=== PATIENT | male | born 1950 | race African-American/Black ===

== ENCOUNTER 2017-11-20 09:34 | Emergency (ER) | payer MEDICARE, MEDICAID ==
[~2017-11-20] VITALS: Ht 182.9 cm; Wt 75.0 kg
[2017-11-20] MEDS ORDERED: IBUPROFEN 600MG TABLET PO ONE (17:30)
[2017-11-20] MEDS ORDERED: HYDROCODONE/ACETAMINOPHEN 5/325MG TABLET PO ONE (19:30)
[2017-11-20 23:15] VITALS: BP 139/75
== END 2017-11-20 22:35 | disposition home or self-care (01) ==
LOC: ER 09:58
DX: M54.42 Lumbago with sciatica, left side (principal); M79.672 Pain in left foot; M25.561 Pain in right knee; W19.XXXA Unspecified fall, initial encounter; Y93.89 Activity, other specified; Y92.89 Other specified places as the place of occurrence of the external cause; Y99.8 Other external cause status
CPT/HCPCS: 72170; 73564; 99284; L1830

== ENCOUNTER 2018-10-15 19:28 | Inpatient (IN) | payer BC, MEDICAID, OTHER ==
[~2018-10-15] VITALS: Ht 162.6 cm; Wt 75.3 kg
[2018-10-15] MEDS ORDERED: ONDANSETRON HCL 4MG/2ML INJ IV STA ×2 (20:19→23:51)
[2018-10-15] MEDS ORDERED: FENTANYL CITRATE/PF 50MCG/ML 2ML VIAL IV ONE (20:30)
[2018-10-15 21:31] LABS: MEAN CORPUSCULAR HEMOGLOBIN 28.4 pg (28.0-32.0); MEAN CORPUSCULAR VOLUME 85.6 fL (80.0-94.0); MEAN PLATELET VOLUME 7.4 fl (7.4-10.4); PLATELET 122 x1000/uL (130-400); RED BLOOD CELL COUNT 2.17 mill/uL (4.7-6.1); RED CELL DISTRIBUTION WIDTH 17.9 % (11.6-14.6)
[2018-10-15 21:35] LABS: HEMATOCRIT. 18.6 % (42.0-52.0); HEMOGLOBIN. 6.2 g/dL (14.0-18.0)
[2018-10-15 21:36] LABS: CHLORIDE 112 mEq/L (98-107)
[2018-10-15 21:39] LABS: INR 1.2
[2018-10-15 21:59] LABS: NUCLEATED RED BLOOD CELLS 4 /100 WBC; PLATELET ESTIMATE DECREASED
[2018-10-15] MEDS ORDERED: MORPHINE SULFATE 4 MG/ML CPJ (NOT FOR IM USE) IV STA (23:51)
[2018-10-16] VITALS (10 sets, daily range): BP systolic 122–137; BP diastolic 65–80
[2018-10-16 01:01] LABS: CLARITY URINE CLEAR (CLEAR); COLOR URINE YELLOW (YELLOW); KETONES URINE NEGATIVE (NEGATIVE); LEUKOCYTE ESTERASE URINE NEGATIVE (NEGATIVE); NITRITE URINE NEGATIVE (NEGATIVE); OCCULT BLOOD URINE 1+ (NEGATIVE); PH URINE 5.5 (4.5-8.0); PROTEIN URINE 2+ (NEGATIVE); SPECIFIC GRAVITY URINE 1.019 (1.005-1.030)
[2018-10-16] MEDS ORDERED: ACETAMINOPHEN 325MG TABLET PO PRN (06:45)
[2018-10-16] MEDS ORDERED: MAGNESIUM/ALUMINUM HYDROXIDE/SIMETHICONE 30ML UDC PO PRN (06:45)
[2018-10-16] MEDS ORDERED: ONDANSETRON HCL 4MG/2ML INJ IV PRN (06:45)
[2018-10-16] MEDS ORDERED: NA PHOS,M-B/NA PHOS,DI-BA ENEMA 118ML PR PRN (06:45)
[2018-10-16] MEDS ORDERED: CLONIDINE 0.1MG TABLET PO PRN (06:45)
[2018-10-16] MEDS: SODIUM CHLORIDE 0.9% 1,000 ML IV SCH (11:20)
[2018-10-16 16:35] LABS: HEMATOCRIT 21.1 % (42.0-52.0); MEAN CORPUSCULAR HEMOGLOBIN 28.8 pg (28.0-32.0); PLATELET 103 x1000/uL (130-400); RED BLOOD CELL COUNT 2.43 mill/uL (4.7-6.1); RED CELL DISTRIBUTION WIDTH 17.3 % (11.6-14.6)
[2018-10-16 16:48] LABS: TOTAL IRON BINDING CAPACITY 163 ug/dL (250-450)
[2018-10-17] VITALS (12 sets, daily range): BP systolic 127–156; BP diastolic 71–107
[2018-10-17] MEDS: SODIUM CHLORIDE 0.9% 1,000 ML IV SCH ×2 (01:37→08:02)
[2018-10-17 07:52] LABS: BASOPHILS % 0.9 % (0.0-2.0); EOSINOPHILS % 0.7 % (0.0-5.0); HEMATOCRIT. 21.8 % (42.0-52.0); HEMOGLOBIN. 7.1 g/dL (14.0-18.0); LYMPHOCYTES % 21.2 % (20.0-50.0); MEAN CORPUSCULAR HEMOGLOBIN 28.7 pg (28.0-32.0); MEAN CORPUSCULAR VOLUME 87.4 fL (80.0-94.0); MEAN PLATELET VOLUME 8.1 fl (7.4-10.4); MONOCYTES % 8.7 % (2.0-8.0); NEUTROPHILS % 68.5 % (40.0-76.0); PLATELET 86 x1000/uL (130-400); RED BLOOD CELL COUNT 2.49 mill/uL (4.7-6.1); RED CELL DISTRIBUTION WIDTH 16.8 % (11.6-14.6)
[2018-10-17 15:17] LABS: BG BASE EXCESS -7.7 mmol/L (-2.0-2.0); BG CARBOXYHEMOGLOBIN 0.3 % (0.5-1.5); BG DEOXYHEMOGLOBIN 2.9 % (0.0-5.0); BG FRACTION INSPIRED OXYGEN 21; BG HCO3 ACT 15.2 mmol/L (22.0-26.0); BG METHEMOGLOBIN 0.7 % (0.0-1.5); BG OXYGEN SATURATION 97.1 % (92.0-98.5); BG OXYHEMOGLOBIN 96.1 % (94.0-97.0); BG PCO2 22.3 mmHg (35.0-45.0); BG PO2 95.2 mmHg (75.0-100.0); BG SAMPLE SITE RIGHT RADIAL; BG TOTAL HEMOGLOBIN 8.3 g/dL (12.0-18.0); BG VENT MODE ROOM AIR
[2018-10-17] MEDS: BICALUTAMIDE 50 MG TABLET PO SCH (16:00)
[2018-10-17] MEDS ORDERED: BICALUTAMIDE 50 MG TABLET PO SCH (20:55)
[2018-10-18] VITALS (7 sets, daily range): BP systolic 130–159; BP diastolic 76–110
[2018-10-18] MEDS: SODIUM CHLORIDE 0.9% 1,000 ML IV SCH (04:23)
[2018-10-18 06:48] LABS: BASOPHILS % 0.7 % (0.0-2.0); EOSINOPHILS % 0.7 % (0.0-5.0); HEMATOCRIT. 23.6 % (42.0-52.0); HEMOGLOBIN. 7.8 g/dL (14.0-18.0); LYMPHOCYTES % 17.9 % (20.0-50.0); MEAN CORPUSCULAR HEMOGLOBIN 28.7 pg (28.0-32.0); MEAN CORPUSCULAR VOLUME 86.4 fL (80.0-94.0); MONOCYTES % 8.7 % (2.0-8.0); PLATELET 87 x1000/uL (130-400); RED BLOOD CELL COUNT 2.73 mill/uL (4.7-6.1); RED CELL DISTRIBUTION WIDTH 16.9 % (11.6-14.6)
[2018-10-18 07:37] LABS: PHOSPHORUS 2.4 mg/dL (2.5-4.9)
[2018-10-18] MEDS: BICALUTAMIDE 50 MG TABLET PO SCH (09:00)
[2018-10-18] MEDS ORDERED: DOCUSATE SODIUM 100MG CAPSULE PO PRN (19:00)
[2018-10-18 21:44] LABS: HEMATOCRIT 25.2 % (42.0-52.0); HEMOGLOBIN 8.4 g/dL (14.0-18.0)
[2018-10-18] MEDS: HYDROCODONE/APAP 7.5/325MG 1 TAB TABLET PO PRN (23:37)
[2018-10-19] VITALS: BP 157/77
[2018-10-19] MEDS: SODIUM CHLORIDE 0.9% 1,000 ML IV SCH (01:28)
[2018-10-19] MEDS: DIPHENHYDRAMINE 50MG/ML VIAL IV PRN (02:59)
[2018-10-19 04:00] VITALS: BP 138/75
[2018-10-19 07:38] LABS: BASOPHILS % 0.6 % (0.0-2.0); EOSINOPHILS % 0.9 % (0.0-5.0); HEMOGLOBIN. 8.4 g/dL (14.0-18.0); LYMPHOCYTES % 22.3 % (20.0-50.0); MEAN CORPUSCULAR HEMOGLOBIN 28.9 pg (28.0-32.0); MEAN PLATELET VOLUME 7.6 fl (7.4-10.4); MONOCYTES % 10.3 % (2.0-8.0); NEUTROPHILS % 65.9 % (40.0-76.0); PLATELET 99 x1000/uL (130-400)
[2018-10-19 08:00] VITALS: BP 138/68
[2018-10-19] MEDS: BICALUTAMIDE 50 MG TABLET PO SCH (08:43)
[2018-10-19] MEDS: AMLODIPINE 5MG TABLET PO SCH (08:54)
[2018-10-19 08:58] LABS: PHOSPHORUS 2.7 mg/dL (2.5-4.9)
[2018-10-19] MEDS ORDERED: FUROSEMIDE 20MG/2ML VIAL IVP SCH (09:15)
[2018-10-19 11:30] VITALS: BP 129/73
[2018-10-19] MEDS: METRONIDAZOLE 500MG TABLET PO SCH ×2 (15:26→21:06)
[2018-10-19 15:55] VITALS: BP 140/80
[2018-10-19] MEDS ORDERED: VANCOMYCIN HCL 1 GM/VIAL PO SCH (18:00)
[2018-10-19] MEDS ORDERED: DEXTROSE 50% WATER 50ML SYRINGE IV PRN (19:30)
[2018-10-19] MEDS: VANCOMYCIN HCL 1000 MG/20 ML ORAL PO SCH (19:30)
[2018-10-19 20:00] VITALS: BP 131/81
[2018-10-19] MEDS: BLOOD SUGAR DIAGNOSTIC STRIP TEST SCH (21:00)
[2018-10-20] VITALS (19 sets, daily range): BP systolic 112–151; BP diastolic 62–96
[2018-10-20] MEDS: METRONIDAZOLE 500MG TABLET PO SCH ×3 (06:08→22:00)
[2018-10-20] MEDS: VANCOMYCIN HCL 1000 MG/20 ML ORAL PO SCH ×5 (06:09→23:08)
[2018-10-20 06:50] LABS: BASOPHILS % 1.1 % (0.0-2.0); EOSINOPHILS % 0.8 % (0.0-5.0); HEMATOCRIT. 23.6 % (42.0-52.0); LYMPHOCYTES % 19.1 % (20.0-50.0); MEAN CORPUSCULAR HEMOGLOBIN 28.8 pg (28.0-32.0); MEAN CORPUSCULAR VOLUME 84.8 fL (80.0-94.0); MEAN PLATELET VOLUME 7.3 fl (7.4-10.4); MONOCYTES % 12.7 % (2.0-8.0); NEUTROPHILS % 66.3 % (40.0-76.0); PLATELET 91 x1000/uL (130-400); RED BLOOD CELL COUNT 2.78 mill/uL (4.7-6.1); RED CELL DISTRIBUTION WIDTH 16.8 % (11.6-14.6)
[2018-10-20] MEDS: BLOOD SUGAR DIAGNOSTIC STRIP TEST SCH ×4 (07:30→20:21)
[2018-10-20] MEDS: BICALUTAMIDE 50 MG TABLET PO SCH (09:18)
[2018-10-20] MEDS: AMLODIPINE 5MG TABLET PO SCH (09:18)
[2018-10-20] MEDS ORDERED: IOHEXOL-300 50 ML BOTTLE IV ONE (12:53)
[2018-10-20] MEDS ORDERED: LIDOCAINE HCL 1% 20ML VIAL (Pyxis) INJ ONE (12:54)
[2018-10-20] MEDS ORDERED: FENTANYL CITRATE/PF 50MCG/ML 2ML VIAL ONE (13:33)
[2018-10-20] MEDS ORDERED: FENTANYL CITRATE/PF 50MCG/ML 2ML VIAL IV ONE (13:45)
[2018-10-21] VITALS (7 sets, daily range): BP systolic 111–147; BP diastolic 70–88
[2018-10-21] MEDS: HYDROCODONE/APAP 7.5/325MG 1 TAB TABLET PO PRN (00:29)
[2018-10-21] MEDS: DIPHENHYDRAMINE 50MG/ML VIAL IV PRN (00:56)
[2018-10-21] MEDS: METRONIDAZOLE 500MG TABLET PO SCH ×3 (05:27→23:53)
[2018-10-21] MEDS: VANCOMYCIN HCL 1000 MG/20 ML ORAL PO SCH ×4 (05:27→23:54)
[2018-10-21 06:49] LABS: BASOPHILS % 1.1 % (0.0-2.0); EOSINOPHILS % 1.3 % (0.0-5.0); HEMATOCRIT. 24.4 % (42.0-52.0); HEMOGLOBIN. 8.1 g/dL (14.0-18.0); LYMPHOCYTES % 23.1 % (20.0-50.0); MEAN CORPUSCULAR HEMOGLOBIN 28.6 pg (28.0-32.0); MEAN CORPUSCULAR VOLUME 86.4 fL (80.0-94.0); MEAN PLATELET VOLUME 7.5 fl (7.4-10.4); MONOCYTES % 12.7 % (2.0-8.0); NEUTROPHILS % 61.8 % (40.0-76.0); PLATELET 104 x1000/uL (130-400); RED BLOOD CELL COUNT 2.82 mill/uL (4.7-6.1); RED CELL DISTRIBUTION WIDTH 17.1 % (11.6-14.6)
[2018-10-21] MEDS: BLOOD SUGAR DIAGNOSTIC STRIP TEST SCH ×4 (08:29→21:42)
[2018-10-21] MEDS: BICALUTAMIDE 50 MG TABLET PO SCH (08:49)
[2018-10-21] MEDS: AMLODIPINE 5MG TABLET PO SCH (08:52)
[2018-10-21 11:19] LABS: PHOSPHORUS 2.9 mg/dL (2.5-4.9)
[2018-10-22] VITALS (11 sets, daily range): BP systolic 114–130; BP diastolic 65–97
[2018-10-22] MEDS: METRONIDAZOLE 500MG TABLET PO SCH ×3 (06:06→21:25)
[2018-10-22] MEDS: VANCOMYCIN HCL 1000 MG/20 ML ORAL PO SCH ×3 (06:07→19:38)
[2018-10-22] MEDS: BLOOD SUGAR DIAGNOSTIC STRIP TEST SCH ×4 (06:09→21:26)
[2018-10-22 07:51] LABS: MEAN CORPUSCULAR HEMOGLOBIN 28.8 pg (28.0-32.0); MEAN CORPUSCULAR VOLUME 86.8 fL (80.0-94.0); MEAN PLATELET VOLUME 7.7 fl (7.4-10.4); PLATELET 97 x1000/uL (130-400); RED BLOOD CELL COUNT 2.29 mill/uL (4.7-6.1); RED CELL DISTRIBUTION WIDTH 16.7 % (11.6-14.6)
[2018-10-22 08:07] LABS: PHOSPHORUS 2.5 mg/dL (2.5-4.9)
[2018-10-22 08:13] LABS: HEMOGLOBIN. 6.6 g/dL (14.0-18.0)
[2018-10-22 08:14] LABS: HEMATOCRIT. 19.9 % (42.0-52.0)
[2018-10-22] MEDS: AMLODIPINE 5MG TABLET PO SCH (08:59)
[2018-10-22] MEDS: BICALUTAMIDE 50 MG TABLET PO SCH (08:59)
[2018-10-22 11:50] LABS: PLATELET ESTIMATE DECREASED
[2018-10-22 21:15] LABS: BASOPHILS % 1.7 % (0.0-2.0); EOSINOPHILS % 1.1 % (0.0-5.0); HEMATOCRIT. 23.5 % (42.0-52.0); HEMOGLOBIN. 7.8 g/dL (14.0-18.0); LYMPHOCYTES % 23.8 % (20.0-50.0); MEAN CORPUSCULAR HEMOGLOBIN 28.9 pg (28.0-32.0); MEAN CORPUSCULAR VOLUME 87.1 fL (80.0-94.0); MEAN PLATELET VOLUME 7.4 fl (7.4-10.4); MONOCYTES % 13.9 % (2.0-8.0); NEUTROPHILS % 59.5 % (40.0-76.0); PLATELET 116 x1000/uL (130-400); RED BLOOD CELL COUNT 2.69 mill/uL (4.7-6.1); RED CELL DISTRIBUTION WIDTH 17.1 % (11.6-14.6)
[2018-10-22 21:19] LABS: INR 1.4; PROTHROMBIN TIME 13.6 sec (9.1-11.1)
[2018-10-23] VITALS: BP 129/65
[2018-10-23] MEDS: VANCOMYCIN HCL 1000 MG/20 ML ORAL PO SCH ×5 (01:03→23:20)
[2018-10-23 04:00] VITALS: BP 126/60
[2018-10-23] MEDS: METRONIDAZOLE 500MG TABLET PO SCH ×3 (05:22→21:17)
[2018-10-23] MEDS: BLOOD SUGAR DIAGNOSTIC STRIP TEST SCH ×4 (05:45→20:41)
[2018-10-23 07:13] LABS: HEMATOCRIT. 24.4 % (42.0-52.0); MEAN CORPUSCULAR HEMOGLOBIN 28.8 pg (28.0-32.0); MEAN CORPUSCULAR VOLUME 88.2 fL (80.0-94.0); MEAN PLATELET VOLUME 7.3 fl (7.4-10.4); PLATELET 113 x1000/uL (130-400); RED BLOOD CELL COUNT 2.77 mill/uL (4.7-6.1)
[2018-10-23 07:51] LABS: PHOSPHORUS 2.2 mg/dL (2.5-4.9)
[2018-10-23 08:00] VITALS: BP 128/73
[2018-10-23] MEDS: AMLODIPINE 5MG TABLET PO SCH (08:40)
[2018-10-23] MEDS: BICALUTAMIDE 50 MG TABLET PO SCH (08:40)
[2018-10-23 11:22] LABS: NUCLEATED RED BLOOD CELLS 2 /100 WBC
[2018-10-23 11:23] LABS: PLATELET ESTIMATE NORMAL
[2018-10-23 12:00] VITALS: BP 123/68
[2018-10-23] MEDS ORDERED: SODIUM PHOS,M-BASIC-D-BASIC 15 MM in DEXT 5% WATER 245 ML IV SCH (14:00)
[2018-10-23 16:00] VITALS: BP 123/66
[2018-10-23 20:00] VITALS: BP 130/68
[2018-10-24] VITALS: BP_SYST 119; BP_SYST 126; BP_DIAS 56; BP_DIAS 73
[2018-10-24 04:00] VITALS: BP 126/70
[2018-10-24] MEDS: VANCOMYCIN HCL 1000 MG/20 ML ORAL PO SCH ×4 (05:34→23:05)
[2018-10-24] MEDS: METRONIDAZOLE 500MG TABLET PO SCH ×3 (05:34→22:02)
[2018-10-24 06:54] LABS: HEMATOCRIT. 23.3 % (42.0-52.0); HEMOGLOBIN. 7.7 g/dL (14.0-18.0); MEAN CORPUSCULAR HEMOGLOBIN 29.1 pg (28.0-32.0); MEAN PLATELET VOLUME 7.2 fl (7.4-10.4); PLATELET 137 x1000/uL (130-400); RED BLOOD CELL COUNT 2.65 mill/uL (4.7-6.1); RED CELL DISTRIBUTION WIDTH 17.2 % (11.6-14.6)
[2018-10-24 07:18] LABS: CHLORIDE 112 mEq/L (98-107)
[2018-10-24 07:28] LABS: PHOSPHORUS 2.8 mg/dL (2.5-4.9)
[2018-10-24 08:00] VITALS: BP 142/86
[2018-10-24] MEDS: BICALUTAMIDE 50 MG TABLET PO SCH (09:36)
[2018-10-24] MEDS: AMLODIPINE 5MG TABLET PO SCH (09:37)
[2018-10-24 12:00] VITALS: BP 121/67
[2018-10-24 16:00] VITALS: BP 126/71
[2018-10-24 17:33] LABS: PLATELET ESTIMATE NORMAL
[2018-10-24 20:00] VITALS: BP_SYST 116; BP_SYST 130; BP_DIAS 72; BP_DIAS 76
[2018-10-25] VITALS: BP 128/74
[2018-10-25 04:00] VITALS: BP 130/74
[2018-10-25] MEDS: METRONIDAZOLE 500MG TABLET PO SCH ×2 (05:18→13:55)
[2018-10-25] MEDS: VANCOMYCIN HCL 1000 MG/20 ML ORAL PO SCH ×2 (05:19→13:55)
[2018-10-25 05:39] LABS: HEMATOCRIT 23.6 % (42.0-52.0); HEMOGLOBIN 7.9 g/dL (14.0-18.0); MEAN CORPUSCULAR HEMOGLOBIN 29.3 pg (28.0-32.0); MEAN CORPUSCULAR VOLUME 87.2 fL (80.0-94.0); PLATELET 152 x1000/uL (130-400); RED CELL DISTRIBUTION WIDTH 17.1 % (11.6-14.6)
[2018-10-25 05:50] LABS: CHLORIDE 115 mEq/L (98-107)
[2018-10-25 08:00] VITALS: BP 128/69
[2018-10-25] MEDS: BICALUTAMIDE 50 MG TABLET PO SCH (09:02)
[2018-10-25] MEDS: AMLODIPINE 5MG TABLET PO SCH (09:03)
[2018-10-25 12:00] VITALS: BP 130/71
[2018-10-25 16:00] VITALS: BP 115/65
[2018-10-25 20:00] VITALS: BP 116/69
[2018-10-26] VITALS: BP 117/66
[2018-10-26 04:00] VITALS: BP 122/65
[2018-10-26 07:32] LABS: HEMATOCRIT. 24.2 % (42.0-52.0); HEMOGLOBIN. 8.1 g/dL (14.0-18.0); MEAN CORPUSCULAR HEMOGLOBIN 29.2 pg (28.0-32.0); MEAN CORPUSCULAR VOLUME 87.8 fL (80.0-94.0); MEAN PLATELET VOLUME 6.9 fl (7.4-10.4); PLATELET 165 x1000/uL (130-400); RED BLOOD CELL COUNT 2.76 mill/uL (4.7-6.1); RED CELL DISTRIBUTION WIDTH 16.8 % (11.6-14.6)
[2018-10-26 08:00] VITALS: BP 122/66
[2018-10-26 08:15] LABS: CHLORIDE 114 mEq/L (98-107)
[2018-10-26 08:23] LABS: PHOSPHORUS 2.4 mg/dL (2.5-4.9)
[2018-10-26] MEDS: BICALUTAMIDE 50 MG TABLET PO SCH (10:01)
[2018-10-26] MEDS ORDERED: POTASSIUM-SODIUM PHOSPHATE POWDER PACKET PO NR (10:45)
[2018-10-26 12:00] VITALS: BP 123/66
[2018-10-26 13:00] LABS: PLATELET ESTIMATE NORMAL
[2018-10-26 16:00] VITALS: BP 119/66
[2018-10-26 16:42] VITALS: BP 115/56
== END 2018-10-26 19:25 | DRG 542 ==
LOC: ER 19:28 → 5EST 22:55 → EDBEDREQ 10-16 02:03 → ENRESERV 10-16 08:12 → 5WST 10-21 18:08
PROVIDERS: ADMIT Internal Medicine; ATTEND Internal Medicine
PROC: 30233N1 Transfusion of Nonautologous Red Blood Cells into Peripheral Vein, Percutaneous Approach (ICD-10-PCS; principal; 2018-10-16)
PROC: 0T903ZZ Drainage of Right Kidney, Percutaneous Approach (ICD-10-PCS; 2018-10-20)
DX: C79.51 Secondary malignant neoplasm of bone (principal); E43 Unspecified severe protein-calorie malnutrition; I50.43 Acute on chronic combined systolic (congestive) and diastolic (congestive) heart failure; M84.454A Pathological fracture, pelvis, initial encounter for fracture; M84.48XA Pathological fracture, other site, initial encounter for fracture; N13.30 Unspecified hydronephrosis; N17.9 Acute kidney failure, unspecified; E87.2 Acidosis; A04.72 Enterocolitis due to Clostridium difficile, not specified as recurrent; C76.51 Malignant neoplasm of right lower limb; D64.9 Anemia, unspecified; C61 Malignant neoplasm of prostate; N32.0 Bladder-neck obstruction; D63.1 Anemia in chronic kidney disease; D69.6 Thrombocytopenia, unspecified; E16.2 Hypoglycemia, unspecified; E87.5 Hyperkalemia; F03.90 Unspecified dementia, unspecified severity, without behavioral disturbance, psychotic disturbance, mood disturbance, and anxiety; G89.3 Neoplasm related pain (acute) (chronic); K59.00 Constipation, unspecified; M48.02 Spinal stenosis, cervical region; M48.04 Spinal stenosis, thoracic region; M48.061 Spinal stenosis, lumbar region without neurogenic claudication; R62.7 Adult failure to thrive; N18.9 Chronic kidney disease, unspecified; Z51.5 Encounter for palliative care; Z66 Do not resuscitate; M85.80 Other specified disorders of bone density and structure, unspecified site; M19.90 Unspecified osteoarthritis, unspecified site; R26.9 Unspecified abnormalities of gait and mobility; Z68.28 Body mass index [BMI] 28.0-28.9, adult; Z82.49 Family history of ischemic heart disease and other diseases of the circulatory system; Z85.46 Personal history of malignant neoplasm of prostate; Z93.6 Other artificial openings of urinary tract status
CPT/HCPCS: 36415; 36600; 50432; 71045; 71250; 72141; 72146; 72148; 72170; 73502; 74176; 76770; 78707; 80048; 82270; 82375; 82805; 82962; 83540; 83550; 83735; 83880; 84100; 84153; 84484; 85014; 85018; 85027; 85384; 86850; 86900; 86920; 87015; 87045; 87427; 87449; 93005; 93306; 93970; 96374; 96375; 99291; A6261; A9562; C1729; C1769; J1200; J1644; J1940; J2270; J2405; J3010; J3370; J3490; J7040; J7050; J7060; P9016; Q9967; A4315; G0103